=== PATIENT | female | born 1990 | race Caucasian/White ===

== ENCOUNTER 2016-06-21 19:02 | Emergency (ER) | payer OTHER ==
[2016-06-21 19:34] VITALS: BP 120/76
--- NOTE | 2016-06-21 20:58 | UC ---
Dizzy HPI HPI Summary: This is an otherwise healthy female who presents after a dizzy episode. Patient had noted some swollen areas in her neck. She had started to google the possible explanation for her swollen neck including carotid pathology. She suddenly felt warm and light headed. She did not loose consciousness. She called for her roommate who told her to put her head between her knees which seemed to help. She admits that she has a generally high level of anxiety, especially about medical "unknowns". She has intermittently been treated for her anxiety in the past. She is currently engaged in counseling, but is unsure how effective it has been. - History Of Current Complaint Chief Complaint: UCGeneralIllness Stated Complaint: THROAT COMPLAINT Hx Last Menstrual Period: iud Pain Intensity: 0 Pain Scale Used: 0-10 Numeric - Allergies/Home Medications Allergies/Adverse Reactions: Allergies Allergy/AdvReac Type Severity Reaction Status Date / Time No Known Allergies Allergy Verified 06/21/16 19:34 PMH/Surg Hx/FS Hx/Imm Hx Previously Healthy: Yes Psychological History Of: Reports: Anxiety - Surgical History Surgical History: None - Family History Known Family History: Positive: Other - no significant family history - Social History Alcohol Use: Weekly Substance Use Type: None Smoking Status (MU): Never Smoked Tobacco Have You Smoked in the Last Year: No - Immunization History Most Recent Influenza Vaccination: apr 2016 Review of Systems Constitutional: Negative Skin: Negative Eyes: Blurred Vision ENT: Negative Respiratory: Negative Cardiovascular: Negative Gastrointestinal: Negative Genitourinary: Negative Motor: Negative Neurovascular: Negative Musculoskeletal: Negative Neurological: Other - dizziness Psychological: Negative All Other Systems Reviewed And Are Negative: Yes Physical Exam Triage Information Reviewed: Yes Appearance: Well-Appearing - very anxious and tearful Vital Signs: Initial Vital Signs Temp 98.6 F 06/21/16 19:22 Pulse 68 06/21/16 19:22 Resp 16 06/21/16 19:22 BP 120/76 06/21/16 19:22 Pulse Ox 100 06/21/16 19:22 Vital Signs Reviewed: Yes ENT: Positive: Hearing grossly normal, Pharynx normal, Pharyngeal erythema, TM red - mild erythema of L neck. Negative: Tonsillar swelling, Tonsillar exudate Neck: Positive: Supple, Enlarged Nodes @ - L anterior cervical Respiratory: Positive: Chest non-tender, Lungs clear, Normal breath sounds Cardiovascular Exam: Normal Cardiovascular: Positive: RRR, No Murmur Abdomen Description: Positive: Nontender Psychological: Positive: Other: - very anxious and tearful Dizzy Course/Dx - Course Course Of Treatment: Patient has mild erythema of L TM and associated L anterior cervical LAD, indicative of OM, possibly viral. Symptoms do not warrant use of antibiotics at this time. Patient's "dizzy" episode seems to be most likely anxiety driven given the cirumstances and negative exam here. After discussing anxiety symptoms further she seems to be quite consumed with fear of various medical problems on a daily basis. Strongly encouraged that she discuss these symptoms in more detail with her PCP and she would benefit from treatment - Differential Dx/Diagnosis Differential Diagnosis/HQI/PQRI: Anxiety, Benign Paroxysmal Positional Vertigo, Hyperventilation Provider Diagnoses: 1. Anxiety disorder and presyncope. 2. Otitis media Discharge - Discharge Plan Condition: Stable Disposition: HOME Patient Education Materials: Generalized Anxiety Disorder (ED) Referrals: ARIANNA John [Medical Doctor] - Additional Instructions: Activity: No restrictions Instructions: 1. You have a mild L ear infection and the enlarged areas that you feel in your neck are enlarged lymph nodes 2. The dizzy episode from earlier today was likely anxiety induced, I would recommend that you discuss this further with your PCP at your appointment Tuesday
== END 2016-06-21 20:36 | disposition home or self-care (01) ==
LOC: UCEAST 19:02
DX: F41.9 Anxiety disorder, unspecified (principal); R55 Syncope and collapse; H66.90 Otitis media, unspecified, unspecified ear
CPT/HCPCS: 99211; G0463

== ENCOUNTER 2018-01-21 16:53 | Emergency (ER) | payer OTHER ==
[2018-01-21 17:11] VITALS: BP 101/61
--- NOTE | 2018-01-21 17:33 | UC ---
Lower Extremity/Ankle HPI - HPI Summary HPI Summary: pt injured R knee 3 weeks ago, has been seeing sports medicine for care. today twisted knee again while walking dogs, did not fall on knee - History of Current Complaint Chief Complaint: UCLowerExtremity Stated Complaint: KNEE INJURY Time Seen by Provider: 01/21/18 17:23 Hx Obtained From: Patient Hx Last Menstrual Period: [id number] ?: No Onset/Duration: Sudden Onset Severity Initially: Mild Severity Currently: Mild Pain Intensity: 2 Aggravating Factor(s): Ambulation Alleviating Factor(s): Rest Able to Bear Weight: Yes - Allergies/Home Medications Allergies/Adverse Reactions: Allergies Allergy/AdvReac Type Severity Reaction Status Date / Time wasps Allergy Swelling Uncoded 01/21/18 17:11 PMH/Surg Hx/FS Hx/Imm Hx Previously Healthy: Yes Psychological History: Anxiety - Surgical History Surgical History: Yes Surgery Procedure, Year, and Place: WISDOM TEETH REMOVED, MOLE REMOVED ABDOMEN - Family History Known Family History: Positive: None, Other - no significant family history Negative: Cardiac Disease, Hypertension - Social History Occupation: Employed Full-time Lives: Alone Alcohol Use: Weekly Alcohol Amount: 2x/a week Substance Use Type: Marijuana Smoking Status (MU): Never Smoked Tobacco Have You Smoked in the Last Year: No - Immunization History Most Recent Influenza Vaccination: apr 2016 Review of Systems Constitutional: Negative Respiratory: Negative Cardiovascular: Negative Musculoskeletal: Decreased ROM, Other: - pain R knee Neurological: Negative Psychological: Negative All Other Systems Reviewed And Are Negative: Yes Physical Exam Triage Information Reviewed: Yes Appearance: Well-Appearing, No Pain Distress, Well-Nourished Vital Signs: Initial Vital Signs Temp 98.4 F 01/21/18 17:04 Pulse 66 01/21/18 17:04 Resp 16 01/21/18 17:04 BP 101/61 01/21/18 17:04 Pulse Ox 100 01/21/18 17:04 Vital Signs Reviewed: Yes Neck exam: Normal Respiratory Exam: Normal Cardiovascular Exam: Normal Musculoskeletal: Positive: ROM Limited @ - R knee d/t pain and some swelling Neurological Exam: Normal Psychological Exam: Normal Skin Exam: Normal Lower Extremity Course/Dx - Differential Dx/Diagnosis Differential Diagnosis/HQI/PQRI: Contusion, Dislocation, Fracture (Closed), Strain Provider Diagnoses: R knee injury Discharge - Sign-Out/Discharge Documenting (check all that apply): Patient Departure - Discharge Plan Condition: Stable Disposition: HOME Patient Education Materials: Knee Pain (ED) Referrals: Coby eMnsah NP [Primary Care Provider] - 2 Days (follow-up) Additional Instructions: call sports medicine on Tuesday for recheck knee use knee immobilizer - may remove to do PT exercises ibuprofen as directed for pain, ice and elevate knee - Billing Disposition and Condition Condition: STABLE Disposition: Home
== END 2018-01-21 17:45 | disposition home or self-care (01) ==
LOC: UCEAST 16:53
DX: S89.81XA Other specified injuries of right lower leg, initial encounter (principal); X50.1XXA Overexertion from prolonged static or awkward postures, initial encounter; Y92.89 Other specified places as the place of occurrence of the external cause
CPT/HCPCS: 99211; G0463

== ENCOUNTER 2018-05-22 06:19 | Day surgery (SDC) | payer OTHER ==
--- NOTE | 2018-05-11 22:32 | HP ---
PREOPERATIVE HISTORY AND PHYSICAL: DATE OF ADMISSION/SURGERY: 05/22/18 DATE OF OFFICE VISIT: 05/11/18 ATTENDING SURGEON: Fabyb Collins MD * (DICTATED BY JOSEPHINE JOHNSON) PROCEDURE: Right knee arthroscopy, anterior cruciate ligament reconstruction with autograft. CHIEF COMPLAINT: Right knee. HISTORY OF PRESENT ILLNESS: Mary is a 28-year-old female who presents to clinic for right knee instability due to an ACL tear. She has failed conservative measures and therefore agreed to undergo a right knee arthroscopy, anterior cruciate ligament reconstruction with autograft with Dr. Collins on . PAST MEDICAL HISTORY: 1. Borderline high cholesterol. 2. Possible seizure in 2012 x1, no repeat seizure since. 3. Depression. 4. Anxiety. PAST SURGICAL HISTORY: [place] teeth extraction. The patient denies prior complications with anesthesia. MEDICATIONS: 1. Mirena 20 mcg for 24 hours. 2. Xanax 0.25 mg 1 by mouth up to 3 times a day as needed for anxiety. 3. Valacyclovir 500 mg 1 by mouth every day. 4. Methylphenidate hydrochloride ER 36 mg 1 by mouth every morning. ALLERGIES: No known drug allergies. She is allergic to BEE STINGS. FAMILY HISTORY: Positive for diabetes in paternal grandmother, heart disease in all 4 grandparents and paternal uncle and cancer in maternal grandmother, which was breast cancer, and heart disease on the maternal side as well as heart arrhythmia in her dad. She denies family history of DVT or PE. SOCIAL HISTORY: She lives with her housemates. She is communications instructor. She denies tobacco use. She reports occasional consumption. She exercises regularly. She is active and she is left-hand dominant. REVIEW OF SYSTEMS: A 14-point review of systems was reviewed with the patient. Positive for current complaint, otherwise negative. Denies fevers, chills, chest pain, shortness of breath, history of DVT or PE, history of bleeding disorder. PHYSICAL EXAMINATION GENERAL: A 28-year-old well-developed, well-nourished female, in no acute distress. Alert and oriented x3. VITAL SIGNS: Height 66, weight 140, blood pressure 124/70, respiratory rate 18 , BMI 22.6. HEENT: Normocephalic, atraumatic. PERRLA. Throat: Clear. NECK: Supple. PULMONARY: Lungs are clear to auscultation bilaterally. No wheezing, rhonchi, or rales. CARDIO: Regular rate and rhythm. S1, S2. No murmurs, gallops, or rubs. No edema. ABDOMEN: Positive bowel sounds, soft, nontender. NEURO: Alert and oriented x3. Cranial nerves grossly intact. Sensation is intact to light touch distally. MUSCULOSKELETAL: Right upper extremity, skin is intact. No warmth or erythema. No obvious effusion. She has range of motion 0 to 130. Stable varus and valgus stress. 2B Demetris. Negative posterior drawer. +5/5 strength to ankle dorsiflexion and plantar flexion. +2 DP pulse. Sensation intact to light touch distally. DIAGNOSTIC STUDIES: MRI revealed grade 3 ACL rupture with no obvious meniscus injury. She has a consistent bone bruise pattern. IMPRESSION: Right knee ACL tear. PLAN: The patient is scheduled to undergo a right knee arthroscopy, anterior cruciate ligament reconstruction with autograft with Dr. Collins on 05/22/18. She will follow up 10 days postop for followup and suture removal. Percocet will be used for postop pain management and Keflex for antibiotic prophylaxis. JOSEPHINE JOHNSON [id number]/[facility] #: [id number] MTDMarci
[~2018-05-22 06:19] MED LIST: Buffered Lidocaine 0.9% SYRIN* 5 ML/SYR SYRINGE INTRADERM ONE; Dexamethasone IV* 4 MG/ML 1 ML (4 MG) IV SLOW PU ONE; Famotidine IV* 10 MG/ML 2 ML (20 mg) IV ONE; Lactated Ringers 1000 ML Bag* 1,000 ML IV SCH
[2018-05-22] MEDS ORDERED: Dexamethasone IV* 4 MG/ML 1 ML (4 MG) ONE (06:25)
[2018-05-22] MEDS ORDERED: Famotidine IV* 10 MG/ML 2 ML (20 mg) ONE (06:25)
[2018-05-22] MEDS ORDERED: ceFAZolin 2 GM PREMIX in ORs 2 GM/50 ML BAG IVPB ONE (06:25)
[2018-05-22] MEDS ORDERED: Lidocaine 1% MPF wEPI 200,000* 30 ML SDV ONE (07:05)
[2018-05-22] MEDS ORDERED: ROPIVACAINE 5 MG/ML 30 ML BTL (0.5%) ONE (07:06)
[2018-05-22] MEDS ORDERED: Midazolam* 1 MG/ML 5 ML VIAL (5 MG) ONE (07:19)
[2018-05-22] MEDS ORDERED: fentaNYL* 50 MCG/ML 5 ML VIAL (250 MCG VIAL) ONE (07:19)
[2018-05-22] MEDS ORDERED: Lidocaine 2% PF * 5 ML VIAL ONE (07:20)
[2018-05-22] MEDS ORDERED: Propofol* 10 MG/ML 20 ML BTL ONE (07:20)
[2018-05-22] MEDS ORDERED: Ketorolac INJ* 30 MG/ML 1 ML VIAL IV PRN (07:57)
[2018-05-22] MEDS ORDERED: PROCHLORPERAZINE INJ 5 MG/ML 2 ML VIAL IV PRN (07:57)
[2018-05-22] MEDS ORDERED: Naloxone* 0.4 MG/ML 1 ML VIAL IV PRN (07:57)
[2018-05-22] MEDS ORDERED: Acetaminophen TAB* 325 MG PO PRN (07:57)
[2018-05-22] MEDS ORDERED: HYDROcodone/ACETAMIN 5-325 MG* 1 TAB PO PRN (07:57)
[2018-05-22] MEDS ORDERED: DiMENhydriNATE IV* 50 MG/ML VIAL IV PUSH PRN (07:57)
[2018-05-22] MEDS ORDERED: fentaNYL* 50 MCG/ML 2 ML VIAL (100 MCG VIAL) IV PRN (07:57)
[2018-05-22] MEDS ORDERED: Ondansetron INJ* 2 MG/ML VIAL ONE (08:58)
[2018-05-22] MEDS ORDERED: oxyCODONE/Acetamin 5/325 MG* TAB ONE (09:47)
[2018-05-22] MEDS ORDERED: Ketorolac INJ* 30 MG/ML 1 ML VIAL ONE (09:47)
[2018-05-22 10:47] VITALS: BP 128/72
--- NOTE | 2018-05-24 11:22 | OP ---
Operative Report - Blank - Operative Report Date of Operation: 05/22/18 Note: CC: PCP DATE OF OPERATION: 05/22/2018 DATE OF : 1990 SURGEON: Fabby Collins MD SAW BOSS: JOSEPHINE Brown ANESTHESIOLOGIST: Miranda . ANESTHESIA: General. PRE-OP DIAGNOSIS: knee grade 3 anterior cruciate ligament rupture. POST-OP DIAGNOSIS: Left knee grade 3 anterior cruciate ligament rupture with medial femoral condyle chondrosis and medial meniscus tear. OPERATIVE PROCEDURE: Left knee arthroscopy with 1. ACL reconstruction using graft. 2. Lateral meniscus repair. COMPLICATIONS: None. ESTIMATED BLOOD LOSS: Minimal. IMPLANTS USED: [employer]hew SoftSilk 7 x 20 and 9 x 25. 1 FasT-Fix 360 device TOURNIQUET TIME: 20 minutes. INDICATIONS: has failed conservative management. He has elected to proceed with surgical treatment. Risks and benefits were discussed at length including, but not limited to, bleeding, infection, damage to nerves, vessels, surrounding structures, wound nonhealing, persistent pain, need for further surgery, scarring, stiffness, incomplete relief of symptoms, risks of anesthesia, and risk of DVT. DESCRIPTION OF PROCEDURE: The patient was greeted in the preoperative area by the attending surgeon. Correct extremity was marked and consent was confirmed. The patient was brought back to the operating suite, where he was placed in supine position on the operating table. The patient then underwent general anesthesia and LMA intubation, after which he was appropriately positioned on the bed. The lateral post was positioned. A nonsterile tourniquet was placed high on the proximal thigh. A beanbag was placed to get the knee at 90 degrees. The left leg was then prepped and draped in the usual sterile fashion beginning with Chlorhexidine soap, scrub, and alcohol wipe and a final prep of ChloraPrep. After appropriate surgical pause indicating site, side, procedure, administration of antibiotics, the knee was intra-articularly injected with 1% lidocaine with epi. The leg was exsanguinated using an escmarch. The tourniquet was inflated. A midline incision over the patellar tendon was then made using a 15 blade. The soft tissues were carefully dissected to expose the peritenon. This was then incised for later layer closure. The patellar tendon was then visualized and the center 10 mm were then marked and harvested using a 10 blade. Bone blocks were harvested proximally and distally using the sagittal saw and osteotome. The femoral bone block was estimated to be 9 x 23 mm. The tibial block was 10 by 30 mm. The graft was prepared on the back table by the junior sales assistant. The patellar tendon was closed in a [id number] fashion using 0 Vicryl suture and interrupted fashion. The tourniquet was deflated. Attention was then directed to the arthroscopy portion, the anterolateral portal was made through the capsule sharply with an 11-blade. Scope was introduced into the joint, joint was examined. There was synovitis present anteriorly. There was evidence of grade 3 rupture of the ACL. Anteromedial portal was then made using an 18-gauge needle for needle localization. The shaver was used to debride back the abundant synovitis. The ACL was found to be completely torn off the femoral insertion and scarred to the PCL. The pieces were then carefully elevated and debrided back using chitra and biters. Electrocautery was used to maintain hemostasis at all times. Attention was then directed to the patellofemoral joint. The trochlea had grade 0 changes. The patella had grade 0 changes. The medial and lateral gutters were intact without any loose debris. The scope was placed in the medial compartment. The medial femoral compartment had grade 0-1 changes. The medial meniscus was intact. The knee was placed in [id number] position, the lateral femoral condyle and lateral plateau had grade 0 changes. The lateral meniscus had evidence of a longitudinal tear that had not fully healed. The undersurface had unstable tearing in the red white zone. The decision was made to repair this. The meniscus rasp was used to rasp the unstable edges to allow for bleeding. After which 1 FasT-Fix 360 device was used to stabilize the meniscus. The knee was then placed to 90 degrees. The lateral wall was then prepared using the shaver and electrocautery device. The starting awl was then used to provisionally kavita the lateral femoral condyle and used as a reference point for the femoral tunnel. The scope was changed position to make sure that it was appropriately placed. Attention was then directed to the tibial tunnel. The tip-to-tip guide was placed in the center of the tibial footprint set to 50 degrees. After this was done, the guidewire was placed in the center of the footprint and drilled with a size 10 mm full-bore reamer based on the preoperative graft size. Once the tunnel was drilled, all excess bony debris was removed, the tunnel was then rasped for easier passage of the graft. Care was placed to prevent fluid egress. The attention was directed to the femoral tunnel. The straight guide placed by Graves and Nephew in the center of the footprint. The knee was then hyperflexed, after which the Beath pin was placed in the center of the footprint and then drilled bicortically through the IT band and to the skin. Once the appropriate position was identified, a 9 mm low profile reamer was then drilled to a depth of about 25 mm based on the graft 9 x 25 mm and the graft was found to be about 23 mm in length. The excess bone and debris was removed. The tunnel was then carefully notched. The tunnel was examined and found to be appropriately placed. At this point, a #2 Ethibond suture was placed through the eyelet of the Beath pin and advanced through the lateral thigh and then brought antegrade through the tibial tunnel. The graft was then brought to the field by the attending surgeon and passed under direct and arthroscopic visualization to be well seated in the femoral tunnel. This was secured with a size 7 x 20 mm SoftSilk screw with excellent purchase. The knee was then cycled approximately 20 times to remove any creep from the graft. The knee was then brought back to 90 degrees. The scope was brought back to the joint and the graft was in good position. The knee was then placed in about 20 to 30 degrees of flexion with tension on tibial sutures and posterior drawer. The tibial tunnel was secured with a 9 x 25 mm screw with okay purchase. The knee was then taken through full range of motion, found to have a stable Demetris. The scope was brought back to the joint, found to have the graft had not changed. There was no evidence of impingement anteriorly. The final images were obtained. The wounds were copiously irrigated with sterile saline. Excess bone block from the allograft on the tibial surface was removed using the shaver and the rongeur. The wounds were copiously irrigated. Portals were closed with 3-0 nylon, skin with 2-0 Vicryl and 3-0 Monocryl. The knee was intra- articularly injected with 0.2% ropivacaine. Sterile dressings were applied. A Cryo/Cuff and a hinged knee brace. He was awoken from anesthesia and transferred to PACU in stable condition. POSTOPERATIVE PLAN: She will be non weightbearing in the brace for 4 weeks with range of motion from 0-70 degrees. The patient will be discharged on pain medication. DVT prophylaxis was considered, but deferred due to no previous personal or family history. He will be discharged on antibiotics. I will see the patient back in 6 to 8 days. The patient will start therapy within the first week.
== END 2018-05-22 10:50 | disposition home or self-care (01) ==
LOC: OREAST 06:19
PROVIDERS: ATTEND Orthopaedic Surgery
DX: S83.511A Sprain of anterior cruciate ligament of right knee, initial encounter (principal); S83.282A Other tear of lateral meniscus, current injury, left knee, initial encounter; F41.8 Other specified anxiety disorders; X58.XXXA Exposure to other specified factors, initial encounter; Y92.9 Unspecified place or not applicable
CPT/HCPCS: 81025; 88304; A9270-GY; C1713; J0690; J1100; J1885; J2001; J2250; J2405; J2704; J2795; J3010